=== PATIENT | female | born 1935 | race Caucasian/White ===

== ENCOUNTER 2020-01-04 12:17 | Emergency (ER) | payer MEDICARE ==
[~2020-01-04] VITALS: Ht 165.1 cm; Wt 54.4 kg
[2020-01-04] MEDS ORDERED: LIDOCAINE 1%-EPI 1:100,000 20 ML VIAL ONE (12:39)
--- NOTE | 2020-01-04 12:45 | NUR ---
patient came in to the er c/o 1 cm laceration to forehead s/p glf at [facility], denies loc, neck, or back pain. On room air, breathing evenly and unlabored. connected to the monitor and pulse ox. kept comfortable, will continue to monitor accordingly.
[2020-01-04 14:02] VITALS: BP 140/81
--- NOTE | 2020-01-04 14:03 | NUR ---
Patient discharged to home in stable condition. Written and verbal after care instructions given. Patient verbalizes understanding of instruction.
== END 2020-01-04 14:03 | disposition home or self-care (01) ==
LOC: ER 12:18
DX: S01.81XA Laceration without foreign body of other part of head, initial encounter (principal); S80.01XA Contusion of right knee, initial encounter; Z88.0 Allergy status to penicillin; Z88.5 Allergy status to narcotic agent; W01.0XXA Fall on same level from slipping, tripping and stumbling without subsequent striking against object, initial encounter; Y93.89 Activity, other specified; Y92.89 Other specified places as the place of occurrence of the external cause; Y99.8 Other external cause status
CPT/HCPCS: 12013; 70450; 72125; 73564; 99284; J3490

== ENCOUNTER 2020-01-10 07:11 | Emergency (ER) | payer MEDICARE ==
[~2020-01-10] VITALS: Ht 165.1 cm; Wt 54.4 kg
[2020-01-10 07:17] VITALS: BP 133/55
--- NOTE | 2020-01-10 07:23 | NUR ---
AT BEDSIDE FOR EVAL.
--- NOTE | 2020-01-10 07:27 | NUR ---
STERI STRIP APPLIED.
--- NOTE | 2020-01-10 07:31 | NUR ---
Patient discharged to home in stable condition. Written and verbal after care instructions given. Patient verbalizes understanding of instruction.
== END 2020-01-10 07:32 | disposition home or self-care (01) ==
LOC: ER 07:14
DX: S00.11XA Contusion of right eyelid and periocular area, initial encounter (principal); Z88.0 Allergy status to penicillin; Z88.5 Allergy status to narcotic agent; Z48.01 Encounter for change or removal of surgical wound dressing; W01.0XXA Fall on same level from slipping, tripping and stumbling without subsequent striking against object, initial encounter; Y93.89 Activity, other specified; Y92.89 Other specified places as the place of occurrence of the external cause; Y99.8 Other external cause status